=== PATIENT | male | born 1990 | race African-American/Black ===

== ENCOUNTER 2017-02-16 23:43 | Emergency (ER) | payer OTHER ==
[~2017-02-16] VITALS: Ht 180.3 cm; Wt 77.1 kg
[2017-02-16 23:47] VITALS: BP 123/76
[2017-02-16] MEDS ORDERED: NOHOMEMEDICATIONS (23:52)
[2017-02-17] MEDS ORDERED: ULTRAM 50MG TAB50 MG PO (00:14)
== END 2017-02-17 00:39 | disposition home or self-care (01) ==
LOC: ER 23:43
DX: S61.311A Laceration without foreign body of left index finger with damage to nail, initial encounter (principal); W26.9XXA Contact with unspecified sharp object(s), initial encounter; Y93.89 Activity, other specified; Y92.89 Other specified places as the place of occurrence of the external cause; Y99.8 Other external cause status

== ENCOUNTER 2019-10-16 23:54 | Emergency (ER) | payer OTHER ==
[~2019-10-16] VITALS: Ht 180.3 cm; Wt 83.9 kg
[~2019-10-16 23:54] MED LIST: NOHOMEMEDICATIONS; ULTRAM 50MG TAB50 MG PO
[2019-10-16 23:55] VITALS: BP 121/70
[2019-10-17] MEDS ORDERED: PROAIR HFA8.5 GM INH ×2 (00:11)
[2019-10-17] MEDS ORDERED: PREDNISONE 20 M20 M1 PO (00:11)
== END 2019-10-17 00:20 | disposition home or self-care (01) ==
LOC: ER 23:54
DX: J98.01 Acute bronchospasm (principal)

== ENCOUNTER 2021-08-11 21:16 | Emergency (ER) | payer OTHER ==
[~2021-08-11] VITALS: Ht 182.9 cm; Wt 81.7 kg
[~2021-08-11 21:16] MED LIST changes: +PREDNISONE 20 M20 M1 PO; +PROAIR HFA8.5 GM INH
[2021-08-11] MEDS ORDERED: CEPHALEXIN500 MG PO (22:05)
[2021-08-11] MEDS ORDERED: PROAIR HFA8.5 GM INH (22:05)
[2021-08-11] MEDS ORDERED: MUPIROCIN22 GM TOP (22:05)
[2021-08-11 22:25] VITALS: BP 142/88
== END 2021-08-11 22:34 | disposition home or self-care (01) ==
LOC: ER 21:16
DX: S91.332A Puncture wound without foreign body, left foot, initial encounter (principal); Z76.0 Encounter for issue of repeat prescription; L08.89 Other specified local infections of the skin and subcutaneous tissue; R09.89 Other specified symptoms and signs involving the circulatory and respiratory systems; F12.90 Cannabis use, unspecified, uncomplicated; Z79.899 Other long term (current) drug therapy; X58.XXXA Exposure to other specified factors, initial encounter; Y93.89 Activity, other specified; Y92.89 Other specified places as the place of occurrence of the external cause; Y99.9 Unspecified external cause status